=== PATIENT | male | born 1970 | race Two or more races ===

== ENCOUNTER 2024-03-13 08:41 | Outpatient (CLI) | payer OTHER | END 2024-03-13 08:42 | disposition home or self-care (01) | LOC: NUCLEAR 08:41 | PROVIDERS: ATTEND Internal Medicine Cardiovascular Disease | DX: I10 Essential (primary) hypertension (principal) ==

== ENCOUNTER 2024-03-13 11:09 | Outpatient (CLI) | payer OTHER | END 2024-03-13 11:39 | disposition home or self-care (01) | LOC: RAD 11:09 | PROVIDERS: ATTEND Internal Medicine Cardiovascular Disease | DX: M17.9 Osteoarthritis of knee, unspecified (principal); M19.90 Unspecified osteoarthritis, unspecified site; M46.47 Discitis, unspecified, lumbosacral region ==

== ENCOUNTER 2024-11-28 13:23 | Outpatient (CLI) | payer OTHER | END 2024-11-28 13:24 | disposition home or self-care (01) | LOC: NUCLEAR 13:23 | DX: I82.501 Chronic embolism and thrombosis of unspecified deep veins of right lower extremity (principal) ==

== ENCOUNTER 2024-12-20 07:08 | Outpatient (CLI) | payer OTHER | END 2024-12-20 07:10 | disposition home or self-care (01) | LOC: NUCLEAR 07:08 | PROVIDERS: ATTEND Internal Medicine Cardiovascular Disease | DX: I73.9 Peripheral vascular disease, unspecified (principal); I87.2 Venous insufficiency (chronic) (peripheral) ==